=== PATIENT | female | born 1970 | race Caucasian/White ===

== ENCOUNTER → 2018-09-03 10:48 | Outpatient (CLI) | payer BC, SELFPAY ==
[2018-09-06 17:18] LABS: H. pylori Breath Test Negative (Negative)
== END ==
PROVIDERS: PCP Family Medicine; Visit Provider Family Medicine
DX: K21.9 Gastro-esophageal reflux disease without esophagitis (principal)
CPT/HCPCS: 83013

== ENCOUNTER → 2019-04-14 13:14 | Outpatient (CLI) | payer BC, SELFPAY ==
--- NOTE | 2019-04-14 13:20 | US_ITS ---
US transvaginal HISTORY: ITS.REASON: ABNORMAL MENSTRUAL PERIODS ORDERING PHYSICIAN: MACEY Ibarra PATIENT AGE: 49 years Comparison: None FINDINGS: The uterus is 10 x 6 x 8 cm. Combined endometrial thickness is 16 mm. There is a 5 x 4 cm area of decreased echogenicity within the fundus of the uterus consistent with fibroid along the right aspect of the fundus. Ovaries have an unremarkable appearance. No cul-de-sac fluid evident. No adnexal mass. IMPRESSION: 1. Thickened endometrium at 16 mm. 2. 5 cm fibroid along the fundus of the uterus
== END ==
PROVIDERS: PCP Physician Assistant; Visit Provider Physician Assistant
DX: N92.6 Irregular menstruation, unspecified (principal); R93.89 Abnormal findings on diagnostic imaging of other specified body structures; D25.9 Leiomyoma of uterus, unspecified
CPT/HCPCS: 76830

== ENCOUNTER → 2019-10-29 12:15 | Outpatient (CLI) | payer BC, SELFPAY ==
--- NOTE | 2019-10-29 12:24 | XR_ITS ---
PROCEDURE: XR TOE RT MIN 2V Patient Age:49Y CLINICAL INDICATION: pain in toe of right foot Pain and swelling at the great toe. No known injury COMPARISON: LEAJW/OLT MRI-LOW EXT ANY JOINT W/O-LT from 06/02/2016 FINDINGS: Osseous structures are intact at the great toe. Joint spaces well maintained. No punched-out lesions or erosions to support gout radiographically. No soft tissue calcifications. No fracture. Borderline joint space narrowing 1st MCP joint with perhaps some very slight hallux valgus changes but IMPRESSION: Right great toe intact. No fracture; no soft tissue calcification or lesions evident on plain film Perhaps subtle hallux valgus changes Dictated by: Victor M Sumner MD 10/29/2019 16:23 Electronically signed by Victor M Sumner MD in [place] 10/29/2019 16:23
== END ==
PROVIDERS: PCP Family Medicine; Referring Provider Family Medicine; Visit Provider Family Medicine
DX: M79.674 Pain in right toe(s) (principal)
CPT/HCPCS: 73660

== ENCOUNTER → 2021-01-28 12:41 | Outpatient (CLI) | payer BC, SELFPAY ==
--- NOTE | 2021-01-28 13:09 | US_ITS ---
PROCEDURE: US BREAST LT COMPLETE CLINICAL INDICATION: pain left and heavy feeling left breast COMPARISON: MG MM DIG MAMM BI DX W/CAD from 01/28/2021 FINDINGS: There is a small hypoechoic cystic-appearing lesion 1 o'clock position near the nipple measuring 0.6 x 0.2 by 0.6 cm with slight acoustic enhancement beneath and this likely is a small simple cyst. Otherwise no abnormal cystic or solid lesion is noted. There are normal appearing nodes in the axilla. IMPRESSION: Essentially unremarkable ultrasound left breast Dictated by: Dr. Alberto Carpio MD 02/07/2021 13:56 Dr. Alberto Carpio MD in [place] 02/07/2021 13:56
--- NOTE | 2021-01-28 13:09 | MM_ITS ---
PROCEDURE: MM DIG MAMM BI DX W/CAD Digital Breast Tomosynthesis Included CLINICAL INDICATION: pain and heavy feeling in left breast COMPARISON: MG DIGMAMMS MAMMOGRAM SCREEN-MUSIC ASSISTANT N/C from 12/18/2004 MG DMSB DIG MAMM-SCREEN HERMAN from 06/07/2015 MG DMDXUAVR DIG MAMM-DX UNI ADD VIEWS-RT from 06/26/2015 TECHNIQUE: Standard CC and MLO images and 3D Tomosynthesis was obtained. R2 CAD reviewed. Additional spot compression views and 90 degree lateral view of left breast obtained. FINDINGS: Moderate diffuse fibroglandular densities are seen throughout breasts. There are stable small benign-appearing nodular densities upper outer quadrant right breast. There is a similar small nodular density outer quadrant left breast. A couple of benign-appearing microcalcifications left breast. CAD markings right breast were reviewed and appear to be benign. There are no suspicious microcalcifications. IMPRESSION: Fibrofatty parenchyma with no suspicious lesions seen BI-RAD Category: 2 Benign Finding(s) FOLLOW-UP: 1YR 1 Year Follow-up (A letter has been sent to the patient regarding results of the study.) Dictated by: Dr. Alberto Carpio MD 02/05/2021 07:40 Dr. Alberto Carpio MD in [place] 02/05/2021 07:40
== END ==
PROVIDERS: PCP Family Medicine; Visit Provider Nurse Practitioner
DX: N64.4 Mastodynia (principal)
CPT/HCPCS: 76641; 77062; 77066; G0279

== ENCOUNTER → 2021-07-23 16:40 | Outpatient (CLI) | payer BC, SELFPAY ==
[2021-07-23 18:49] LABS: Basophils # 0.1 K/mm3 (0-0.2); Basophils % 1.3 % (0.1-2.0); Eosinophils # 0.1 K/mm3 (0.0-0.4); Eosinophils % 1.3 % (0.1-12.0); Hematocrit 26.4 % (37.0-47.0); Hemoglobin 7.5 g/dL (12.2-16.2); Lymphocytes # 2.7 K/mm3 (0.7-4.5); Lymphocytes % 34.3 % (10-50); Mean Corpuscular HGB Conc 28.2 g/dL (31.8-35.4); Mean Corpuscular Hemoglobin 22.7 pg (27.0-31.2); Mean Corpuscular Volume 80.6 fl (81-99); Mean Platelet Volume 7.9 fl (7.4-10.4); Monocytes # 0.5 K/mm3 (0.1-1.0); Monocytes % 5.8 % (1.7-9.3); Neutrophils # 4.5 K/mm3 (1.8-7.8); Neutrophils % 57.2 % (37.0-80.0); Platelet Count 438 K/mm3 (142-424); Red Blood Count 3.28 M/mm3 (4.20-5.40); Red Cell Distribution Width 18.1 % (11.5-17.5); White Blood Count 7.8 K/mm3 (4.8-10.8)
[2021-07-23 21:04] LABS: Thyroid Stimulating Hormone 1.41 uIU/mL (0.465-4.68)
[2021-07-25 08:17] LABS: FSH 29.6 mIU/mL (.)
== END ==
PROVIDERS: Visit Provider Obstetrics & Gynecology
DX: N94.6 Dysmenorrhea, unspecified (principal); R09.89 Other specified symptoms and signs involving the circulatory and respiratory systems
CPT/HCPCS: 36415; 83001; 84443; 85025

== ENCOUNTER 2021-07-26 09:02 | Outpatient (CLI) | payer BC, SELFPAY ==
[2021-07-26] VITALS (20 sets, daily range): BP systolic 108–142; BP diastolic 56–82; PULSE 65–84; RESP 17–20; TEMP 36.4–36.8; O2SAT 98–100; BMI 30.2
--- NOTE | 2021-07-26 16:01 | PC.NURSE ---
blood product verified with Brionna Holt. unable to verify blood product in [employer]. spoke with Alexa Urias and sent an email to confirm times. pt #2 unit started at 1400 and ended at 1605 unit # [id number]
[2021-07-26 18:38] LABS: Hematocrit 33.3 % (37.0-47.0)
== END 2021-07-26 17:19 | disposition home or self-care (01) ==
LOC: INF 09:04
PROVIDERS: PCP Family Medicine; Visit Provider Obstetrics & Gynecology
DX: N92.0 Excessive and frequent menstruation with regular cycle (principal)
CPT/HCPCS: 36415; 36430; 85014; 85018; 86850; P9016

== ENCOUNTER → 2021-07-31 14:34 | Outpatient (CLI) | payer BC, SELFPAY ==
--- NOTE | 2021-07-31 14:34 | US_ITS ---
PROCEDURE: US TRANSVAGINAL CLINICAL INDICATION: pelvic pain COMPARISON: US TRANVAG US transvaginal from 04/14/2019 FINDINGS: UTERUS: 14cm x 8cmx 6cm with a combined endometrial thickness of 17.9mm. There is heterogeneous echogenicity of the endometrium The uterus is enlarged. A suspected fibroid is present in the posterior aspect of the lower uterine segment of uterus measuring 3.3 x 3.1 cm previously 3.9 x 3.6 cm. Additional small uterine fibroid noted along the posterior aspect of the body uterus at 1.7 x 1.4 cm. A 3rd fibroid noted at the fundus of the uterus at 4.2 x 4.6 cm not significantly changed. LEFT OVARY: [id number] with a volume of 6.4ml. RIGHT OVARY: [id number] with a volume of 30.8ml. There are small bilateral ovarian follicles at approximately 2 cm IMPRESSION: Thickened endometrium with heterogeneous echogenicity which could be seen with endometrial hyperplasia or neoplasm. Enlarged uterus with at least 3 suspected uterine fibroids Dictated by: Scott De La O MD 08/05/2021 13:07 Scott De La O MD in [place] 08/05/2021 13:07
== END ==
PROVIDERS: PCP Family Medicine; Visit Provider Obstetrics & Gynecology
DX: R10.2 Pelvic and perineal pain (principal)
CPT/HCPCS: 76830

== ENCOUNTER → 2021-09-03 08:45 | Outpatient (CLI) | payer BC, SELFPAY ==
[2021-09-03 09:22] LABS: Basophils # 0.1 K/mm3 (0-0.2); Basophils % 0.6 % (0.1-2.0); Eosinophils # 0.1 K/mm3 (0.0-0.4); Eosinophils % 0.8 % (0.1-12.0); Hematocrit 41.7 % (37.0-47.0); Hemoglobin 12.4 g/dL (12.2-16.2); Lymphocytes # 2.1 K/mm3 (0.7-4.5); Lymphocytes % 25.3 % (10-50); Mean Corpuscular HGB Conc 29.7 g/dL (31.8-35.4); Mean Corpuscular Hemoglobin 28.3 pg (27.0-31.2); Mean Corpuscular Volume 95.2 fl (81-99); Mean Platelet Volume 7.3 fl (7.4-10.4); Monocytes # 0.5 K/mm3 (0.1-1.0); Monocytes % 5.7 % (1.7-9.3); Neutrophils # 5.7 K/mm3 (1.8-7.8); Neutrophils % 67.7 % (37.0-80.0); Platelet Count 409 K/mm3 (142-424); Red Blood Count 4.38 M/mm3 (4.20-5.40); White Blood Count 8.4 K/mm3 (4.8-10.8)
[2021-09-03 09:50] LABS: Alanine Aminotransferase 10 U/L (12-78); Albumin Level 3.9 g/dl (3.5-5.0); Albumin/Globulin Ratio 1.4 (1.1-1.8); Alkaline Phosphatase 69 U/L (38-126); Anion Gap 11.2 mEq/L (5-15); Aspartate Amino Transferase 19 U/L (14-36); Bilirubin,Total 0.4 mg/dl (0.2-1.3); Blood Urea Nitrogen 5 mg/dl (7-17); Calcium 9.2 mg/dl (8.4-10.2); Carbon Dioxide 24 mmol/L (22.0-30.0); Chloride 109 mmol/L (98-107); Estimated Glomerular Filt Rate 131 ml/min (>60); GFR (African American) 158 ML/MIN (>60); Globulin 2.7 g/dL (1.3-3.2); Glucose 95 mg/dl (74-100); Potassium 4.2 mmoL/L (3.5-5.1); Sodium 140 mmol/L (136-145); Total Protein,Serum 6.6 g/dl (6.3-8.2)
[2021-09-03 09:51] LABS: HCG Qualitative, Serum Negative (Negative)
== END ==
PROVIDERS: Visit Provider Obstetrics & Gynecology
DX: Z01.812 Encounter for preprocedural laboratory examination (principal); Z11.52 Encounter for screening for COVID-19; R93.89 Abnormal findings on diagnostic imaging of other specified body structures
CPT/HCPCS: 36415; 80053; 84703; 85025; C9803; U0003; U0005

== ENCOUNTER 2021-09-05 10:50 | Inpatient (IN) | payer BC, SELFPAY ==
[2021-09-02 10:25] VITALS: BMI 30.2
[2021-09-05] VITALS (20 sets, daily range): BP systolic 101–124; BP diastolic 5–71; PULSE 58–89; RESP 14–20; TEMP 36.6–38; O2SAT 92–99
[2021-09-05 06:19] LABS: Coronavirus 19, PCR Not Detected (NotDetected); Influenza A, PCR Not Detected (NotDetected); Influenza B, PCR Not Detected (NotDetected)
--- NOTE | 2021-09-05 08:05 | HMH.ANESCL ---
[facility] Anesthesia Checklist - Patient Identification Patient Identification: Arm Band - Structural Data Admitted From: Home Planned Operative Procedure/s: [facility] Consent for Planned Operative Procedure(s) Verified: Yes - NPO Status Verified Time NPO: 00:00 - Additional verifications Anesthesia Reactions: No Hx Blood Transfusions: Yes Blood Transfusion Reaction: No - Airway Assessment C-Spine Mobility Assessed: Yes TMJ Mobility Assessed: Yes Dentition: Good Dentition - Neurological Assessment Level of Consciousness: Awake Hx Seizures: No Numbness or tingling in extremities: No - Anesthesia Plan Anesthesia Risk discussed: Yes Anesthesia Plan: Verified ASA Class: II Anesthesia Type: General [facility] History I have reviewed the patient's past medical history: Yes Medical History: Denies:: Cancer, Diabetes Mellitus Type 1, Diabetes Mellitus Type 2, Internal Pacemaker, MRSA, Seizures *Have you ever received a pneumonia vaccine?: No *Have you received a flu vaccine this season?: No Other Medical History: Denies: Blood Transfusion Reaction Anesthesia experience/problems:: None Other Surgeries: Yes: Dilation and Curettage, Tubal Ligation. No: Pacemaker Amputation: No Fractures: No - *Social History Last grade of school completed: Advanced degree Smoking Status: Current every day smoker Tobacco Type: cigarettes # Packs/Day (cigarettes): 1 Alcohol Intake: never Substance Use Type: denies use *Occupational Status:: employed Housing: house Household Members: family *Travel in the last 8 weeks: None Family Hx:: Cancer
--- NOTE | 2021-09-05 08:06 | HMH.HP ---
*Admission Date: 09/05/21 *Chief complaint: HMB, anemia due to chronic blood loss *History of present illness: 51 yo with HMB, DUB and anemia secondary to chronic blood loss pelvic ultrasound shows enlarged uterus 14cm with multiple fibroids she was transfused 2 units PRBCs pre-operatively because of HgB 7.5 She has been taking po FeSO4 and provera since transfusion and bleeding has ceased She is scheduled for definitive management with hysterectomy [facility] History I have reviewed the patient's past medical history: Yes Medical History: Denies:: Cancer, Diabetes Mellitus Type 1, Diabetes Mellitus Type 2, Internal Pacemaker, MRSA, Seizures *Have you ever received a pneumonia vaccine?: No *Have you received a flu vaccine this season?: No Other Medical History: Denies: Blood Transfusion Reaction Other Surgeries: Yes: Dilation and Curettage, Tubal Ligation. No: Pacemaker Amputation: No Fractures: No - *Social History Last grade of school completed: Advanced degree Smoking Status: Current every day smoker Tobacco Type: cigarettes # Packs/Day (cigarettes): 1 Alcohol Intake: never Substance Use Type: denies use *Occupational Status:: employed Housing: house Household Members: family *Travel in the last 8 weeks: None Family Hx:: Cancer : 4 Para: 3 A: 1 Review of Systems - Review of Systems Review of systems:: pertinent systems reviewed and negative unless documented below - *Genitourinary Reports abnormal vaginal bleeding, Reports painful periods, Reports heavy periods Meds Home Medications Medication Instructions Recorded Confirmed Type Ferrous Sulfate [Slow Fe] 45 mg PO DAILY 09/02/21 History Medroxyprogesterone Acetate 10 mg PO DAILY 09/02/21 History [Provera] Allergies Allergy/AdvReac Type Severity Reaction Status Date / Time Sulfa (Sulfonamide Allergy Unknown Verified 09/04/21 14:01 Antibiotics) allergy reaction Exam Vital signs and Labs for Last 24 Hours: Temp Pulse Resp BP Pulse Ox 97.8 F 78 18 124/69 99 09/05/21 06:19 09/05/21 06:19 09/05/21 06:19 09/05/21 06:19 09/05/21 06:19 Laboratory Results - last 24 hr 09/05/21 06:17: SARS-CoV-2 (PCR) Not detected, Influenza A Untype (PCR) Not detected, Influenza Type B (PCR) Not detected I & O for Last 24 hours: Intake & Output 09/02/21 09/03/21 09/04/21 09/05/21 11:59 11:59 11:59 11:59 Weight 165 lb - Constitutional no acute distress - *Routine HEENT Exam Head: Present: normocephalic Eye: Present: EOMI, PERRL ENT: Present: mucous membranes moist - *Routine Neck Exam Present: supple. Absent: lymphadenopathy - *Routine Respiratory Exam Present: CTA bilaterally - *Routine Cardiovascular Exam Present: RRR - *Routine Abdominal Exam Present: soft, normoactive bowel sounds. Absent: tenderness - *Routine Rectal Exam Rectal:: deferred - *Routine Genitalia Exam Genitalia:: normal female Comment:: enlarged uterus - *Routine Extremities Exam Absent: cyanosis, clubbing, edema - *Routine Skin Exam Present: warm. Absent: rash - *Routine Neurological Exam Present: alert, oriented X3 Assessment and Plan (1) Heavy menstrual bleeding Status: Acute Category: Medical Code(s): N92.0 - Excessive and frequent menstruation with regular cycle (2) DUB (dysfunctional uterine bleeding) Status: Acute Category: Medical Code(s): N93.8 - Other specified abnormal uterine and vaginal bleeding (3) Enlarged uterus Problem details: [id number] Status: Acute Category: Medical Code(s): N85.2 - Hypertrophy of uterus (4) Uterine fibroid Problem details: 5x4cm Status: Acute Category: Medical Code(s): D25.9 - Leiomyoma of uterus, unspecified (5) Thickened endometrium Status: Acute Category: Medical Code(s): R93.89 - Abnormal findings on diagnostic imaging of other specified body structures (6) Anemia due to chronic blood loss Status: Acute Category:
--- NOTE | 2021-09-05 10:03 | P.PN_ITS ---
[facility] Anesthesia Record Part I Intake, IV Amount: 900 Estimated blood loss (mL): 150 Urine output (mL): 50 Blood Pressure: 106/62 SaO2: 92 Pulse Rate: 79 Respiratory Rate: 18 Temperature: 97.8 F Patient is:: Drowsy, Oral/Nasal airway Stable to PACU at:: 10:03
--- NOTE | 2021-09-05 10:16 | P.OP_ITS ---
Date of procedure: 09/05/21 Pre-op Diagnosis:: 1. Heavy menstrual bleeding 2. Uterine fibroids 3. Anemia Post-op Diagnosis:: same Procedure performed:: Abdominal supracervical hysterectomy Surgeon:: Sharlene Calzada MD [employer] Setup Worker(s):: [employer] TRUCK DRIVER:: Marla Ramseyabena Anesthesia: GETA Estimated blood loss (mL): 125 Operative findings:: enlarged, bulky uterus with numerous fibroids grossly normal ovaries bilaterally previous tubal ligation with one displaced filshie clip Operative note:: The patient was taken to the operating room and general anesthesia was administered without difficulty. She was prepped and draped in the supine position. A Pfannenstiel skin incision was made approximately 2 cm above the pubic symphysis with a scalpel and carried down to the underlying layer of fascia. The fascia was incised in the midline and extended laterally sharply. The rectus muscles were sharply dissected off the fascia and in the midline. The peritoneum was turned and sharply, with good visualization of the underlying structures. The peritoneal incision was extended bluntly. A survey of the patient's pelvis and abdomen revealed a grossly enlarge, bulky uterus with numerous fibroids noted. At this time, the patient was placed in Trendelenburg and an Dell-O retractor was placed in the abdomen; the bowel was packed with moist laparotomy sponges. A double tooth tenaculum was placed on the uterine fundus and the uterus was elevated out of the pelvis. No fibroids o r other visible uterine lesions were noted. The round ligaments were identified and transected and suture-ligated. The anterior lip of the broad ligament was dissected medially on both sides and the bladder flap was created digitally. The posterior leaf of the broad ligament was dissected until the ureters were able to be identified on either side and noted to be free of the forthcoming adnexal pedicles. The ovaries appeared normal and were not removed. Infundibulopelvic ligaments were doubly clamped transected and suture ligated on either side, with excellent hemostasis noted. The uterine arteries were skeletonized on either side, and were clamped, transected and suture ligated with excellent hemostasis. The bladder flap was further bluntly dissected off the lower uterine segment with excellent hemostasis and without injury to the bladder. Because of bowel adhesions to the lower posterior cervix, a decision was made to amputate the uterus from the cervix. The filshie clip from the left fallopian tube was lying in the deep pelvis, and was removed. The specimen was sent for pathology. The cervix was oversewn with 0-vicryl for hemostasis. All pedicles were reexamined and remained hemostatic. All instruments were removed from the patient's abdomen. The peritoneum was closed with 2-0 Vicryl in a running fashion. The fascia was closed with #1 Vicryl in a running fashion . The skin was closed with becky. The patient tolerated the procedure well; sponge/lap/needle and instrument counts were correct ?2. She was taken to the recovery room awake in stable condition. Estimated blood loss: 150 cc. Condition: stable Disposition: PACU Specimens:: Uterus Complications:: None
--- NOTE | 2021-09-05 10:45 | PC.NURSE ---
PT ARRIVED TO UNIT AT THIS TIME. BED LOCKED IN LOWEST POSITION. HO[place]ING[place]ORTH IN PLACE DRAINING CLEAR YELLOW URINE. IV INFUSING WITHOUT DIFFICULTY. LUNGS CTA AND BOWEL SOUNDS HYPOACTIVE. LOW TRANSVERSE INCISION- SCANT AMOUNT OF SEROSANG DRAINAGE ON RIGHT SIDE. NO VAGINAL BLEEDING AT THIS TIME. PT A/OX4. [address] L PER NC IN PLACE. SCUDS IN PLACE. PTS AT BEDSIDE. NO CURRENT NEEDS
--- NOTE | 2021-09-05 11:29 | HMH.PHAINT ---
MEDICATION RECONCILIATION COMPLETE USING PREVIOUS OFFICE VISIT AND SURECRIPTS
[2021-09-05 13:54] LABS: Microscopic,Cath URINE MICROSCOPIC (MICROSCOPIC)
[2021-09-05 13:56] LABS: Appearance,Urine/Cath CLEAR (Clear); Bilirubin,Cath Negative (Negative); Blood, Urine/Cath TRACE-I (Negative); Color,Urine/Cath YELLOW (Yellow); Glucose,Urine/Cath (UA) Negative (Negative); Ketones,Urine/Cath Negative (Negative); Leukocyte Esterase,Cath Negative (Negative); Nitrate,Cath Negative (Negative); Protein,Urine/Cath Negative (Negative); Specific Gravity, Urine/Cath 1.025 (1.005-1.030); Urobilinogen,Cath 0.2 EU/dl (0.2)
[2021-09-05 14:12] LABS: Bacteria,Urine/Cath TRACE /lpf; RBC,Urine/Cath Occasional # /hpf (0-3); WBC,Urine/Cath Occasional #/hpf (0-3)
--- NOTE | 2021-09-05 16:07 | PC.NURSE ---
Reassessment completed at this time- no changes noted. patient a/ox4. lungs cta and bowel sounds active x4. pt is not passing gas. scuds in placed ble. pulses 2+ and cap refill <3 seconds. Reports intermittent pain, refusing pain medication. iv infusing without difficulty. cortez cath in place draining clear yellow urine. no current needs
[2021-09-06] VITALS (7 sets, daily range): BP systolic 101–133; BP diastolic 56–64; PULSE 60–76; RESP 17–18; TEMP 36.7–37.5; O2SAT 91–95; BMI 30.3
--- NOTE | 2021-09-06 06:10 | PC.NURSE ---
NO ACUTE CHANGES FROM PREVIOUS ASSESSMENT,RESP.EVEN AND UNLABORED,SAT LEVEL THIS MORNING WAS 95%,PT ON 1 LITER PER NC,PT HAS ACHIEVED 1250ML ON INCENTIVE.F/C REMOVED WITH CLEAR YELLOW URINE.,KIKI-CARE DONE.NO NEW DRAINAGE TO LOWER TRANSVERSE INCISION,AFEBRILE
[2021-09-06 06:25] LABS: Hematocrit 33.2 % (37.0-47.0); Hemoglobin 10.2 g/dL (12.2-16.2)
--- NOTE | 2021-09-06 07:35 | PC.NURSE ---
Report received from JEFF Maciel.
--- NOTE | 2021-09-06 10:00 | PC.NURSE ---
Sitting up in bed reading a book. Her remains at bs visiting. Denies any needs at this time.
--- NOTE | 2021-09-06 12:19 | P.PN_ITS ---
[facility] Anesthesia Record Part II Discharge Time: 10:43 Destination: floor PACU nurse assessment reviewed?: Yes Patient Condition:: Good Anesthesia Complications:: None Swallowing reflex intact?: Yes Cyanosis?: No Blood Pressure: 107/56 Pulse Rate: 74 Temperature: 98.3 F Mental Status: Alert & Oriented Pain level:: 0 Nausea and/or vomitting:: None Intake, IV Amount: 1,500
--- NOTE | 2021-09-06 13:55 | PC.NURSE ---
Pt sitting up in bed reading her book. Denies any needs, offered pt a shower and bed change but pt states that she wishes to hold off on one for now and that she might get one later. Instructed pt to let me know when and if she was ready to get one. Verbalized understanding.
--- NOTE | 2021-09-06 14:32 | HMH.ACPN2 ---
Internal Medicine - PN: Subj *Date: 09/06/21 *Time: 14:32 Interval history: POD #1 abdominal supracervical hysterectomy no unusual complaints tolerating regular diet ambulating and voiding without difficulty Exam Vital signs and Labs for Last 24 Hours: Temp Pulse Resp BP Pulse Ox 98.3 F 74 17 107/56 L 92 L 09/06/21 12:20 09/06/21 12:20 09/06/21 12:04 09/06/21 12:20 09/06/21 12:04 Laboratory Results - last 24 hr 09/06/21 06:13: Hgb 10.2 L, Hct 33.2 L I & O for Last 24 hours: Intake & Output 09/04/21 09/05/21 09/06/21 09/07/21 11:59 11:59 11:59 11:59 Intake Total 900 / 900 1200 / 1200 1500 / 1500 Output Total 3150 / 3150 Balance 900 / 900 -1950 / -1950 1500 / 1500 Weight 165 lb 0.009 oz Narrative: CONSTITUTIONAL: no acute distress HEENT: mucous membranes moist PULMONARY: breathing unlabored without audible wheezes CV: no tachycardia or visible JVD; normal LE peripheral pulses ABD: soft, ND; appropriately tender but no rebound/guarding SKIN: incision well approximated with no drainage, erythema or induration EXT: no edema LEs NEURO: alert/oriented, no altered mental status PSYCH: appropriate mood and demeanor without anxiety/depression Assessment and Plan (1) Heavy menstrual bleeding Status: Acute Category: Medical Code(s): N92.0 - Excessive and frequent menstruation with regular cycle (2) DUB (dysfunctional uterine bleeding) Status: Acute Category: Medical Code(s): N93.8 - Other specified abnormal uterine and vaginal bleeding (3) Enlarged uterus Problem details: [id number] Status: Acute Category: Medical Code(s): N85.2 - Hypertrophy of uterus (4) Uterine fibroid Problem details: 5x4cm Status: Acute Category: Medical Code(s): D25.9 - Leiomyoma of uterus, unspecified (5) Thickened endometrium Status: Acute Category: Medical Code(s): R93.89 - Abnormal findings on diagnostic imaging of other specified body structures (6) Anemia due to chronic blood loss Status: Acute Category: Medical Code(s): D50.0 - Iron deficiency anemia secondary to blood loss (chronic) (7) Severe dysmenorrhea Status: Acute Category: Medical Code(s): N94.6 - Dysmenorrhea, unspecified (8) Tobacco abuse Status: Acute Category: Medical Code(s): Z72.0 - Tobacco use (9) Status post abdominal supracervical subtotal hysterectomy Status: Acute Category: Surgical Code(s): Z90.711 - Acquired absence of uterus with remaining cervical stump - Assessment and plan all Dx Assessment and Plan for all problems:: routine postop care anticipate discharge home tomorrow
--- NOTE | 2021-09-06 15:00 | PC.NURSE ---
Continues sitting up in bed reading book. Denies needing anything when asked.
--- NOTE | 2021-09-06 17:20 | PC.NURSE ---
Pt up walking in hallway with sig other.
--- NOTE | 2021-09-06 19:02 | PC.NURSE ---
Report given to JEFF Maciel.
--- NOTE | 2021-09-06 19:41 | PC.NURSE ---
MEDICATED PT WITH TORADOL 30MG IV,TYLENOL 650MG PO AND OXYCODONE 5 MG PO FOR PAIN OF A 7 ON SCALE OF 0-10.ALSO SOME MYLICON 160MG FOR GAS PAIN
[2021-09-07] VITALS: BP 127/74; PULSE 77; RESP 20; TEMP 36.6; O2SAT 92
[2021-09-07 05:00] VITALS: BP 116/69; PULSE 70; RESP 18; TEMP 36.7; O2SAT 94
--- NOTE | 2021-09-07 05:28 | PC.NURSE ---
PT HAS SLEPT WELL TONIGHT,LUNGS CLEAR THROUGHOUT,RESP.EVEN AND UNLABORED,SAT.LEVEL ON ROOM AIR WAS 94% THIS MORNING,PT HAS BEEN ABLE TO ACHIEVE 1250-1500ML ON INCENTIVE SPIROMETER.BOWEL SOUNDS NORMAL IN ALL 4 QUADS,PT REPORTS PASSING FLATUS,REMOVED DRESSING AND CLEANED INCISION WITH HIBICLINS.LEAVING INCISION OPEN TO AIR.SKIN ABRASION NOTED TO RIGHT SIDE OF INCISION MORE SO THAN LEFT SIDE FROM TEGADERM..TRINA INTACT.AFEBRILE
[2021-09-07 08:00] VITALS: BP 138/76; PULSE 86; RESP 16; TEMP 36.7; O2SAT 96
--- NOTE | 2021-09-07 09:11 | HMH.DCSUM ---
General - General Admission date:: 09/05/21 Discharge date: 09/07/21 HPI HPI: 51 yo with HMB, DUB and anemia secondary to chronic blood loss pelvic ultrasound shows enlarged uterus 14cm with multiple fibroids she was transfused 2 units PRBCs pre-operatively because of HgB 7.5 She has been taking po FeSO4 and provera since transfusion and bleeding has ceased She is scheduled for definitive management with hysterectomy Hospital Course Hospital Course: Postop course uneventful discharged home on POD #2 in stable condition tolerating regular diet ambulating and voiding without difficulty Objective Vital signs: Temp Pulse Resp BP Pulse Ox 98.1 F 86 16 138/76 96 09/07/21 08:00 09/07/21 08:00 09/07/21 08:00 09/07/21 08:00 09/07/21 08:00 Narrative: CONSTITUTIONAL: no acute distress HEENT: mucous membranes moist PULMONARY: breathing unlabored without audible wheezes CV: no tachycardia or visible JVD; normal LE peripheral pulses ABD: soft, ND; appropriately tender but no rebound/guarding SKIN: incision well approximated with no drainage, erythema or induration EXT: no edema LEs NEURO: alert/oriented, no altered mental status PSYCH: appropriate mood and demeanor without anxiety/depression DS: Diagnosis - Discharge Diagnosis (1) Heavy menstrual bleeding Status: Acute (2) DUB (dysfunctional uterine bleeding) Status: Acute (3) Enlarged uterus Status: Acute Problem details: [id number] (4) Uterine fibroid Status: Acute Problem details: 5x4cm (5) Thickened endometrium Status: Acute (6) Anemia due to chronic blood loss Status: Acute (7) Severe dysmenorrhea Status: Acute (8) Tobacco abuse Status: Acute (9) Status post abdominal supracervical subtotal hysterectomy Status: Acute Discharge Plan - Patient Discharge Instructions ACTIVITY: Continue current activity DIET: regular diet - Follow up Plan Disposition: Home, Self-Care Condition at discharge:: Stable Home Medications: Home Medications Medication Instructions Recorded Confirmed Type Ferrous Sulfate [Slow Fe] 45 mg PO DAILY 09/02/21 09/05/21 History Medroxyprogesterone Acetate 10 mg PO DAILY 09/02/21 09/05/21 History [Provera] Esomeprazole Magnesium [Nexium] 20 mg PO DAILY 09/05/21 09/05/21 History Ibuprofen [Motrin 400mg 800 mg PO Q6HP PRN #30 tab 09/07/21 Rx tablet] Oxycodone HCl [OxyIR 5mg tablet] 5 mg PO Q4HP PRN #24 tablet 09/07/21 Rx Simethicone [Mylicon 80mg Chewable 160 mg PO Q4HP PRN #30 tab 09/07/21 Rx Tablet] Prescriptions/Medication Reconciliation: New Acetaminophen [Acetaminophen 325mg tab] 650 mg PO Q4HP PRN tablet PRN Reason: Mild Pain Simethicone [Mylicon 80mg Chewable Tablet] 160 mg PO Q4HP PRN #30 tab PRN Reason: GAS Oxycodone HCl [OxyIR 5mg tablet] 5 mg PO Q4HP PRN #24 tablet PRN Reason: Moderate Pain Ibuprofen [Motrin 400mg tablet] 800 mg PO Q6HP PRN #30 tab PRN Reason: Mild Pain Continued Ferrous Sulfate [Slow Fe] 45 mg PO DAILY Medroxyprogesterone Acetate [Provera] 10 mg PO DAILY Esomeprazole Magnesium [Nexium] 20 mg PO DAILY - Problem Reconciliation Problems Reviewed?: Yes
== END 2021-09-07 10:20 | disposition home or self-care (01) | DRG 743 ==
LOC: OB 10:51
PROVIDERS: Admitting Provider Obstetrics & Gynecology; PCP Family Medicine; Visit Provider Obstetrics & Gynecology
PROC: 0UT90ZZ Resection of Uterus, Open Approach (ICD-10-PCS; CPT 58150; principal; 2021-09-05 07:30)
DX: D25.9 Leiomyoma of uterus, unspecified (principal); N93.8 Other specified abnormal uterine and vaginal bleeding; N94.6 Dysmenorrhea, unspecified; Z72.0 Tobacco use; D50.0 Iron deficiency anemia secondary to blood loss (chronic)
CPT/HCPCS: 58180; 36415; 81001; 85014; 85018; 96374; C9803; J2405; J2710; U0003; U0005

== ENCOUNTER 2024-10-19 10:18 | Outpatient (CLI) | payer BC, SELFPAY ==
--- NOTE | 2024-10-19 10:21 | MM_ITS ---
PROCEDURE INFORMATION: Exam: MG Bilateral Screening 3D Mammography Exam date and time: 10/19/2024 10:15 AM Age: 54 years old Clinical indication: Screening mammogram TECHNIQUE: Imaging protocol: Bilateral Screening tomosynthesis and 2D mammography including computer-aided detection (CAD) when performed. COMPARISON: 1. MG MM DIG MAMM BI DX W/CAD 01/28/2021 1:07 PM 2. MG DMDXUAVR DIG MAMM-DX UNI ADD VIEWS-RT 06/26/2015 2:23 PM 3. MG DMSB DIG MAMM-SCREEN HERMAN 06/07/2015 11:05 AM 4. MG DIGMAMMS MAMMOGRAM SCREEN-MECHANICAL ENGINEERING LECTURER N/C 12/18/2004 1:31 PM FINDINGS: MAMMOGRAPHY: Breast composition: There are scattered areas of fibroglandular density. Mass: Stable benign-appearing subcentimeter nodules are present in the bilateral breasts. No new or morphologically suspicious nodule has developed to suggest malignancy. Architectural distortion: No new or suspicious architectural distortion. Calcifications: No new or suspicious calcifications are present Asymmetric density: No new or suspicious asymmetric density is present Skin thickening: None. Axillary adenopathy: None. IMPRESSION: No mammographic evidence of malignancy. Recommend annual screening mammography unless otherwise clinically indicated. ASSESSMENT: BI-RADS category 2: Benign.
== END 2024-10-19 23:59 | disposition home or self-care (01) ==
LOC: RAD 10:19
PROVIDERS: PCP Family Medicine; Visit Provider Family Medicine
DX: Z12.31 Encounter for screening mammogram for malignant neoplasm of breast (principal)
CPT/HCPCS: 77063; 77067